=== PATIENT | male | born 1965 | race Caucasian/White ===

== ENCOUNTER 2020-03-13 00:29 | Inpatient (IN) | payer MEDICAID ==
[~2020-03-13] VITALS: Ht 162.6 cm; Wt 64.9 kg
[~2020-03-13 00:29] MED LIST: METH5TAB2 PO
[2020-03-13] MEDS ORDERED: MORPHINE SULFATE 4 MG/ML, 1ML ONE ×2 (00:58→02:48)
[2020-03-13] MEDS ORDERED: ONDANSETRON 2MG/ML, 2ML ONE (00:58)
[2020-03-13] MEDS ORDERED: ONDANSETRON 2MG/ML, 2ML IVPush ONE (01:00)
[2020-03-13] MEDS ORDERED: SODIUM CHLORIDE FLUSH 10ML SYR IVF ONE (01:00)
[2020-03-13] MEDS: MORPHINE SULFATE 4 MG/ML, 1ML IVPush PRN ×2 (01:07→02:52)
[2020-03-13 01:11] LABS: BASOPHILS % (AUTO) 0 % (0-1); EOSINOPHILS % (AUTO) 1 % (1-7); LYMPHOCYTES % (AUTO) 11 % (22-44); MEAN CORPUSCULAR HEMOGLOBIN 31.7 pg (27.5-34.5); MEAN CORPUSCULAR HGB CONC 34.3 g/dL (33.2-36.2); MEAN PLATELET VOLUME 7.8 fL (7.4-10.4); MONOCYTES % (AUTO) 5 % (2-9); NEUTROPHILS % (AUTO) 83 % (42-75); PLATELET COUNT 204 x10^3/uL (130-400); RED BLOOD COUNT 4.96 x10^6/uL (4.38-5.82); RED CELL DISTRIBUTION WIDTH 12.4 % (9.4-14.8)
[2020-03-13 01:22] LABS: ALANINE AMINOTRANSFERASE 31 U/L (12-78); ALBUMIN 3.7 g/dL (3.4-5.0); ANION GAP 6 mmol/L (5-15); CALCIUM 8.7 mg/dL (8.5-10.1); CHLORIDE 101 mmol/L (98-107)
[2020-03-13 01:24] LABS: ALKALINE PHOSPHATASE 65 U/L (45-117); BILIRUBIN,TOTAL 0.6 mg/dL (0.2-1.0); TOTAL PROTEIN 6.8 g/dL (6.4-8.2)
--- NOTE | 2020-03-13 01:30 | NUR ---
PATIENT TOLERATED IV START WELL. PATIENT GIVEN MEDICATIONS PER MAR. PATIENT UPDATED ON PLAN OF CARE. WARM BLANKETS PROVIDED, LIGHTS DIMMED. CALL LIGHT WITHIN REACH, BED IN LOWEST LOCKED POSITION. WILL CONTINUE TO MONITOR.
[2020-03-13] MEDS ORDERED: OMNIPAQUE 350 MG/ML, 100ML BOTTLE ONE (01:49)
--- NOTE | 2020-03-13 01:58 | NUR ---
PATIENT RETURNED FORM CT, TOLERATED WELL. VITAL SIGNS STABLE. NO NOTED ACUTE DISTRESS.
--- NOTE | 2020-03-13 02:00 | NUR ---
REPORT GIVEN TO FRANSICO MALDONADO
[2020-03-13 02:06] LABS: MD NO
[2020-03-13] MEDS ORDERED: SODIUM CHLORIDE 0.9% 1,000ML IVBOLUS ONE (02:30)
[2020-03-13 03:15] VITALS: BP 176/85
[2020-03-13] MEDS ORDERED: ENALAPRILAT 1.25 MG/ML, 2ML IVPush PRN (04:00)
[2020-03-13] MEDS ORDERED: LABETALOL 5MG/ML, 20ML IVPush PRN (04:00)
[2020-03-13] MEDS ORDERED: ONDANSETRON 2MG/ML, 2ML IVPush PRN (04:00)
[2020-03-13] MEDS ORDERED: HYDROmorphone 2 MG/ML, 1ML IVPush PRN (04:00)
[2020-03-13] MEDS ORDERED: blood pressure med PO (04:05)
[2020-03-13 04:06] LABS: TROPONIN I < 0.015 ng/mL (0.000-0.045)
[2020-03-13] MEDS ORDERED: METO-282 PO (04:07)
[2020-03-13 04:22] VITALS: BP 157/94
[2020-03-13] MEDS: ENOXAPARIN 40 MG/0.4 ML SQ SCH (04:30)
[2020-03-13] MEDS: LACTATED RINGERS 1,000 ML IV SCH ×2 (04:30→15:40)
[2020-03-13 05:37] LABS: MICROSCOPIC NOT IND
[2020-03-13] MEDS: morphine SULFATE 10 MG/ML, 1ML IVPush PRN ×2 (06:19→12:15)
[2020-03-13] MEDS: PANTOPRAZOLE 40 MG IV IVPush SCH (06:19)
[2020-03-13 07:23] VITALS: BP 156/82
[2020-03-13 13:54] VITALS: BP 142/71
[2020-03-13 19:19] VITALS: BP 135/80
[2020-03-14 01:22] VITALS: BP 138/78
[2020-03-14] MEDS: morphine SULFATE 10 MG/ML, 1ML IVPush PRN (01:34)
[2020-03-14] MEDS: ENOXAPARIN 40 MG/0.4 ML SQ SCH (04:23)
[2020-03-14] MEDS: PANTOPRAZOLE 40 MG IV IVPush SCH (05:48)
[2020-03-14] MEDS: LACTATED RINGERS 1,000 ML IV SCH ×2 (05:49)
[2020-03-14] MEDS ORDERED: METOPROLOL SUCCINATE 25 MG TAB.ER.24H PO SCH (06:00)
[2020-03-14 07:34] VITALS: BP 159/77
[2020-03-14] MEDS ORDERED: FLU VACC QS2020-21(6MOS UP)/PF 60MCG/0.5 ML SYR IM ONE (10:30)
== END 2020-03-14 11:13 | disposition home or self-care (01) | DRG 390 ==
LOC: ED 01:23 → 4NE 02:27 → DCLOUNGE 03-14 10:57
PROVIDERS: ADMIT Family Medicine; ATTEND Family Medicine
PROC: 0D9670Z Drainage of Stomach with Drainage Device, Via Natural or Artificial Opening (ICD-10-PCS; principal; 2020-03-13)
DX: K56.609 Unspecified intestinal obstruction, unspecified as to partial versus complete obstruction (principal); I10 Essential (primary) hypertension; F41.9 Anxiety disorder, unspecified; R07.9 Chest pain, unspecified
CPT/HCPCS: 36415; 74018; 74177; 80053; 81003; 83605; 83690; 84484; 85025; 90686; 93005; G0378; J1650; J2405; Q9967; C9113; J2270; J7030; J7120

== ENCOUNTER 2020-03-15 12:02 | Inpatient (IN) | payer MEDICAID ==
[~2020-03-15] VITALS: Ht 162.6 cm; Wt 68.2 kg
[~2020-03-15 12:02] MED LIST changes: +METO-282 PO; +blood pressure med PO
[2020-03-15 12:48] LABS: BASOPHILS % (AUTO) 0 % (0-1); EOSINOPHILS % (AUTO) 1 % (1-7); LYMPHOCYTES % (AUTO) 24 % (22-44); MEAN CORPUSCULAR HGB CONC 34.2 g/dL (33.2-36.2); MEAN PLATELET VOLUME 7.9 fL (7.4-10.4); MONOCYTES % (AUTO) 10 % (2-9); NEUTROPHILS % (AUTO) 66 % (42-75); PLATELET COUNT 208 x10^3/uL (130-400); RED BLOOD COUNT 4.52 x10^6/uL (4.38-5.82); RED CELL DISTRIBUTION WIDTH 12.5 % (9.4-14.8)
[2020-03-15 12:58] LABS: ALBUMIN 3.7 g/dL (3.4-5.0); ANION GAP 4 mmol/L (5-15); CALCIUM 8.9 mg/dL (8.5-10.1); CHLORIDE 103 mmol/L (98-107)
[2020-03-15 12:59] LABS: MD NO
[2020-03-15 13:01] LABS: ALANINE AMINOTRANSFERASE 25 U/L (12-78); ALKALINE PHOSPHATASE 60 U/L (45-117); BILIRUBIN,TOTAL 0.8 mg/dL (0.2-1.0); CREATININE 0.97 mg/dL (0.7-1.3)
--- NOTE | 2020-03-15 13:20 | NUR ---
DRAWER IN JACQUARD LOOM: PATIENT AMBULATORY FROM [facility]
[2020-03-15] MEDS ORDERED: SODIUM CHLORIDE FLUSH 10ML SYR IVF ONE (14:00)
[2020-03-15] MEDS ORDERED: ONDANSETRON 2MG/ML, 2ML IVPush ONE (14:00)
[2020-03-15] MEDS ORDERED: HYDROmorphone 2 MG/ML, 1ML IVPush PRN (14:00)
[2020-03-15] MEDS ORDERED: ONDANSETRON 2MG/ML, 2ML ONE (14:02)
[2020-03-15] MEDS ORDERED: HYDROmorphone 1 MG/ML, 1ML INJ ONE (14:02)
[2020-03-15] MEDS: LACTATED RINGERS 1,000 ML IV SCH ×2 (14:20→20:11)
--- NOTE | 2020-03-15 14:51 | NUR ---
PIV INITIATED, PT MEDICATED PER AUG. NG PLACED, PT TO LOW CONTINUOUS SUCTION.
--- NOTE | 2020-03-15 15:08 | NUR ---
PT TO IMAGING AT THIS TIME
[2020-03-15] MEDS ORDERED: ONDANSETRON 2MG/ML, 2ML IVPush PRN (15:30)
[2020-03-15] MEDS ORDERED: ENALAPRILAT 1.25 MG/ML, 2ML IVPush PRN (15:30)
[2020-03-15] MEDS ORDERED: LACTATED RINGERS 1,000 ML IV SCH (15:30)
--- NOTE | 2020-03-15 15:50 | NUR ---
DELIVERED PT BELONGINGS DELIVERED TO PT IN RADIOLOGY, PT VERIFIED RECEIPT OF ALL BELONGINGS. PT TO GO TO 368, REPORT GIVEN TO RECIEVING FRANSICO
[2020-03-15] MEDS: morphine SULFATE 10 MG/ML, 1ML IVPush PRN ×2 (17:53→21:02)
[2020-03-15] MEDS: PANTOPRAZOLE 40 MG IV IVPush SCH (17:54)
[2020-03-15] MEDS: HEPARIN 5,000 UNITS/ML, 1ML SQ SCH ×2 (17:55→22:19)
[2020-03-15 18:12] VITALS: BP 186/106
[2020-03-15 18:24] VITALS: BP 186/106
[2020-03-15 19:15] VITALS: BP 173/96
[2020-03-15 20:04] VITALS: BP 155/86
[2020-03-16] MEDS: morphine SULFATE 10 MG/ML, 1ML IVPush PRN ×2 (00:42→08:08)
[2020-03-16 00:45] VITALS: BP 135/70
[2020-03-16] MEDS: LACTATED RINGERS 1,000 ML IV SCH ×3 (02:58→23:59)
[2020-03-16] MEDS ORDERED: BUPIVACAINE/PF 0.25% ONE (06:07)
[2020-03-16] MEDS ORDERED: CHLORHEXIDINE 15 ML UDC MM STA (06:24)
[2020-03-16] MEDS ORDERED: CHLORHEXIDINE 15 ML UDC ONE (06:26)
[2020-03-16] MEDS ORDERED: FENTANYL PF 250 MCG/5ML ONE (06:51)
[2020-03-16 07:25] VITALS: BP 137/85
[2020-03-16] MEDS: HEPARIN 5,000 UNITS/ML, 1ML SQ SCH ×3 (07:30→23:30)
[2020-03-16] MEDS: METOCLOPRAMIDE 5 MG/ML, 2ML IVPush SCH ×3 (08:07→21:45)
[2020-03-16] MEDS: PANTOPRAZOLE 40 MG IV IVPush SCH (08:07)
[2020-03-16 13:52] VITALS: BP 152/79
[2020-03-16 19:02] VITALS: BP 138/66
[2020-03-17 00:43] VITALS: BP 136/78
[2020-03-17] MEDS: METOCLOPRAMIDE 5 MG/ML, 2ML IVPush SCH ×2 (04:26→08:24)
[2020-03-17] MEDS: LACTATED RINGERS 1,000 ML IV SCH ×2 (06:19→12:40)
[2020-03-17] MEDS: HEPARIN 5,000 UNITS/ML, 1ML SQ SCH (07:30)
[2020-03-17 07:42] VITALS: BP 162/91
[2020-03-17] MEDS: PANTOPRAZOLE 40 MG IV IVPush SCH (08:24)
== END 2020-03-17 14:33 | disposition home or self-care (01) | DRG 390 ==
LOC: ED 12:59 → INTOOBSV 14:01 → EDIP 14:01 → OBSVTOIN 14:01 → 3N 17:18
PROVIDERS: ADMIT Family Medicine; ATTEND Family Medicine
PROC: 0D9670Z Drainage of Stomach with Drainage Device, Via Natural or Artificial Opening (ICD-10-PCS; principal; 2020-03-15)
DX: K56.609 Unspecified intestinal obstruction, unspecified as to partial versus complete obstruction (principal); I10 Essential (primary) hypertension; F41.9 Anxiety disorder, unspecified; Z20.828 Contact with and (suspected) exposure to other viral communicable diseases; Z87.891 Personal history of nicotine dependence; Z81.8 Family history of other mental and behavioral disorders; Z79.899 Other long term (current) drug therapy
CPT/HCPCS: 36415; 74021; 74250; 80053; 83690; 85025; 87635; 96374; 99285; G0378; J1170; J1644; J2405; J3010; J3490; C9113; J2270; J2765; J7120

== ENCOUNTER 2021-01-18 04:56 | Inpatient (IN) | payer MEDICAID ==
[~2021-01-18] VITALS: Ht 162.6 cm; Wt 70.8 kg
[2021-01-18] MEDS ORDERED: SODIUM CHLORIDE FLUSH 10ML SYR IVF ONE (05:30)
[2021-01-18] MEDS ORDERED: SODIUM CHLORIDE 0.9% 1,000ML IVBOLUS ONE (05:30)
[2021-01-18] MEDS ORDERED: ONDANSETRON 2MG/ML, 2ML IVPush ONE (05:30)
[2021-01-18] MEDS ORDERED: MORPHINE SULFATE 4 MG/ML, 1ML ONE ×2 (05:36→07:41)
[2021-01-18] MEDS ORDERED: ONDANSETRON 2MG/ML, 2ML ONE ×2 (05:36→11:01)
[2021-01-18] MEDS: MORPHINE SULFATE 4 MG/ML, 1ML IVPush PRN ×2 (05:38→07:48)
--- NOTE | 2021-01-18 05:38 | NUR ---
PT AMBULATED TO ROOM 16. C/O PAIN TO ABDOMEN. MD TO BEDSIDE TO EVAL PT, AND NEW ORDERS RECEIVED. PIV STARTED TO RIGHT HAND X1 18G CATH. FLUSHED EASILY AND BLOOD DRAWN AND SENT TO LAB. PT MEDICATED PER MD ORDER, SEE EMAR.
[2021-01-18 05:44] LABS: BASOPHILS % (AUTO) 0 % (0-1); EOSINOPHILS % (AUTO) 1 % (1-7); LYMPHOCYTES % (AUTO) 12 % (22-44); MEAN CORPUSCULAR HEMOGLOBIN 33.1 pg (27.5-34.5); MEAN CORPUSCULAR HGB CONC 35.1 g/dL (33.2-36.2); MONOCYTES % (AUTO) 7 % (2-9); NEUTROPHILS % (AUTO) 80 % (42-75); PLATELET COUNT 218 x10^3/uL (130-400); RED BLOOD COUNT 5.22 x10^6/uL (4.38-5.82); RED CELL DISTRIBUTION WIDTH 13.1 % (9.4-14.8)
[2021-01-18 06:18] LABS: ALBUMIN 3.9 g/dL (3.4-5.0); ANION GAP 7 mmol/L (5-15); CALCIUM 9.5 mg/dL (8.5-10.1); CHLORIDE 103 mmol/L (98-107)
[2021-01-18 06:21] LABS: ALANINE AMINOTRANSFERASE 26 U/L (12-78); ALKALINE PHOSPHATASE 65 U/L (45-117); BILIRUBIN,TOTAL 0.8 mg/dL (0.2-1.0); CREATININE 0.82 mg/dL (0.7-1.3); TOTAL PROTEIN 7.5 g/dL (6.4-8.2)
--- NOTE | 2021-01-18 06:26 | NUR ---
PT TAKEN TO CT SCAN.
[2021-01-18] MEDS ORDERED: OMNIPAQUE 350 MG/ML, 100ML BOTTLE ONE (06:35)
--- NOTE | 2021-01-18 06:47 | NUR ---
REPORT AND CARE TO DOREEN BATEMAN.
--- NOTE | 2021-01-18 07:15 | NUR ---
REPORT RECEIVED FROM FRANSICO VICK, PT IS A&O, RESPS EVEN AND UNLABORED, REPORTING 9/10 LEFT UPPER ABD PAIN WHICH HE STATES IS TYPICAL FOR HIS CHRONIC ABDOMINAL PAIN EPISODES. PT UPDATED WITH POC. BP AND SPO2 MONITORS IN PLACE. CALL LIGHT IN REACH.
--- NOTE | 2021-01-18 07:48 | NUR ---
imaging reviewed by edwi law, valium ordered to be administered prior to NG placement. notified pt requesting second dose morphine, md ok'd valium to be given, ok following 30 mins after morphine. RN received order for NG tube to treat bowel obstruction, pt updated with poc. pt agreeable.
[2021-01-18] MEDS ORDERED: metoprolol PO (07:50)
[2021-01-18] MEDS ORDERED: amoxicillin PO (07:50)
[2021-01-18] MEDS ORDERED: DIAZEPAM 5 MG/ML, 2ML IVPush PRN (08:00)
--- NOTE | 2021-01-18 08:46 | NUR ---
hospitalist ashley at bedside, pt reports pain has subsided, per hospitalist ashley RN to hold NG tube. if pt has increased abd pain later, she will reassess need for order. pt is a&o, resps even and unlabored, bp and spo2 monitors in place. call light in reach. awaiting medical bed assignment and transport.
[2021-01-18] MEDS ORDERED: ONDANSETRON ODT 4 MG PO PRN (09:00)
[2021-01-18] MEDS ORDERED: BISACODYL 10 MG SUPP PR PRN (09:00)
--- NOTE | 2021-01-18 10:00 | NUR ---
medical pts holding in ED, hospital bed requested.
--- NOTE | 2021-01-18 10:01 | NUR ---
order for ancef clarified, this is to replace PO amoxicillin pt has been taking for current strep infection. per shasta ramirez, pt does not require blood cultures or sepsis workup.
[2021-01-18] MEDS ORDERED: CEFAZOLIN PMX 1GM/50ML 50 ML ONE (10:04)
[2021-01-18] MEDS: CEFAZOLIN PMX 1GM/50ML 50 ML IV SCH ×2 (10:09→17:28)
[2021-01-18] MEDS ORDERED: morphine SULFATE 10 MG/ML, 1ML ONE (11:01)
[2021-01-18] MEDS: morphine SULFATE 10 MG/ML, 1ML IVPush PRN (11:06)
[2021-01-18] MEDS: ONDANSETRON 2MG/ML, 2ML IVPush PRN ×2 (11:07→16:14)
--- NOTE | 2021-01-18 11:20 | NUR ---
PT MEDICATED PER EMAR FOR 9/10 ABD PAIN, DECLINES NG TUBE AT THIS TIME IN DEFEREANCE TO MEDICATION. PT TOLERATED WELL. BP AND SPO2 MONITORS IN PLACE. CALL LIGHT IN REACH. PT A&O, RESPS EVEN AND UNLABORED, AWAITING MEDICAL ROOM ASSIGNMENT AND TRANSPORT. PT MOVED ONTO HOSPITAL BED FOR COMFORT. PT KEPT NPO PER HOSPITALIST ORDERS.
--- NOTE | 2021-01-18 11:30 | NUR ---
PT REPORTS PAIN RESOLVED, DENIES ANY ADDITIONAL NEEDS AT THIS TIME.
--- NOTE | 2021-01-18 12:26 | NUR ---
PT SLEEPING, RESPS EVEN AND UNLABORED. BP AND SPO2 MONITORS IN PLACE. CALL LIGHT IN REACH. AWAITING MEDICAL BED ASSIGNMENT AND TRANSPORT.
--- NOTE | 2021-01-18 13:38 | NUR ---
PT REMAINS ASLEEP, RESPS EVEN AND UNLABORED, BP AND SPO2 MONITORS IN PLACE. CALL LIGHT IN REACH. AWAITING MEDICAL BED AND DISPO.
--- NOTE | 2021-01-18 15:15 | NUR ---
PT REPORTING "I FEEL DEHYDRATED" , REPORTING HEADACHE WHICH HE GETS ON A CHRONIC BASIS. GABRIELA SAEED NOTIFIED, MAINTENANCE FLUIDS ORDERED. PT REPORTS ABD PAIN LEVEL IS 5/10, TOLERABLE PER PATIENT, DENIES NAUSEA AT THIS TIME. DECLINES NG TUBE AT THIS TIME.
[2021-01-18] MEDS: SODIUM CHLORIDE 0.9% 1,000 ML IV SCH (15:20)
--- NOTE | 2021-01-18 15:29 | NUR ---
REPORT ATTEMPTED X 2 TO FLOOR RN FOR REPORT, UNABLE TO REACH. REPORT GIVEN TO SMOKE JUMPER PANCHO. PT AWAITING TRANSPORT TO MEDICAL FLOOR AT THIS TIME.
--- NOTE | 2021-01-18 15:46 | NUR ---
pt transported to floor, nadn at transport.
[2021-01-18 15:59] VITALS: BP 182/95
[2021-01-18] MEDS: KETOROLAC 30 MG/1 ML IV PRN (17:28)
[2021-01-18 19:22] VITALS: BP 148/72
[2021-01-18 21:21] LABS: MICROSCOPIC NOT IND
[2021-01-19 01:01] VITALS: BP 153/81
[2021-01-19] MEDS: SODIUM CHLORIDE 0.9% 1,000 ML IV SCH ×3 (01:16→20:03)
[2021-01-19] MEDS: CEFAZOLIN PMX 1GM/50ML 50 ML IV SCH ×3 (01:16→16:00)
[2021-01-19] MEDS: morphine SULFATE 10 MG/ML, 1ML IVPush PRN ×3 (04:08→20:04)
[2021-01-19 05:33] LABS: BASOPHILS % (AUTO) 0 % (0-1); EOSINOPHILS % (AUTO) 1 % (1-7); LYMPHOCYTES % (AUTO) 14 % (22-44); MEAN CORPUSCULAR HEMOGLOBIN 32.6 pg (27.5-34.5); MEAN CORPUSCULAR HGB CONC 34.5 g/dL (33.2-36.2); MEAN PLATELET VOLUME 8.2 fL (7.4-10.4); MONOCYTES % (AUTO) 8 % (2-9); NEUTROPHILS % (AUTO) 77 % (42-75); PLATELET COUNT 194 x10^3/uL (130-400); RED BLOOD COUNT 4.76 x10^6/uL (4.38-5.82)
[2021-01-19 05:41] LABS: ANION GAP 6 mmol/L (5-15); CALCIUM 8.7 mg/dL (8.5-10.1); CHLORIDE 104 mmol/L (98-107)
[2021-01-19 05:44] LABS: CREATININE 0.84 mg/dL (0.7-1.3)
[2021-01-19 07:05] VITALS: BP 162/98
[2021-01-19] MEDS: ONDANSETRON 2MG/ML, 2ML IVPush PRN ×3 (07:24→22:06)
[2021-01-19] MEDS: KETOROLAC 30 MG/1 ML IV PRN ×3 (07:25→22:53)
[2021-01-19 20:00] VITALS: BP 173/84
[2021-01-19 20:59] VITALS: BP 168/93
[2021-01-20 01:00] VITALS: BP 156/89
[2021-01-20] MEDS: CEFAZOLIN PMX 1GM/50ML 50 ML IV SCH ×3 (01:14→16:18)
[2021-01-20] MEDS: SODIUM CHLORIDE 0.9% 1,000 ML IV SCH ×3 (04:30→20:14)
[2021-01-20] MEDS: morphine SULFATE 10 MG/ML, 1ML IVPush PRN ×4 (04:48→20:14)
[2021-01-20 05:06] LABS: BASOPHILS % (AUTO) 0 % (0-1); EOSINOPHILS % (AUTO) 1 % (1-7); LYMPHOCYTES % (AUTO) 16 % (22-44); MEAN CORPUSCULAR HEMOGLOBIN 32.3 pg (27.5-34.5); MEAN CORPUSCULAR HGB CONC 34.3 g/dL (33.2-36.2); MONOCYTES % (AUTO) 12 % (2-9); NEUTROPHILS % (AUTO) 71 % (42-75); PLATELET COUNT 175 x10^3/uL (130-400); RED BLOOD COUNT 4.75 x10^6/uL (4.38-5.82); RED CELL DISTRIBUTION WIDTH 12.6 % (9.4-14.8)
[2021-01-20 05:16] LABS: ANION GAP 0 mmol/L (5-15); CALCIUM 8.2 mg/dL (8.5-10.1); CHLORIDE 109 mmol/L (98-107); CREATININE 0.82 mg/dL (0.7-1.3)
[2021-01-20] MEDS: KETOROLAC 30 MG/1 ML IV PRN ×3 (07:36→21:18)
[2021-01-20] MEDS: METOPROLOL SUCCINATE 25 MG TAB.ER.24H PO SCH ×2 (09:00→09:32)
[2021-01-20 09:23] VITALS: BP 161/83
[2021-01-20 13:38] VITALS: BP 156/88
[2021-01-20] MEDS: ENOXAPARIN 40 MG/0.4 ML SQ SCH (13:53)
[2021-01-20] MEDS: ONDANSETRON 2MG/ML, 2ML IVPush PRN ×2 (13:54→20:14)
[2021-01-20 20:20] VITALS: BP 165/85
[2021-01-21 00:31] VITALS: BP 134/71
[2021-01-21] MEDS: CEFAZOLIN PMX 1GM/50ML 50 ML IV SCH ×3 (01:19→17:41)
[2021-01-21] MEDS: morphine SULFATE 10 MG/ML, 1ML IVPush PRN ×2 (01:24→05:28)
[2021-01-21] MEDS: KETOROLAC 30 MG/1 ML IV PRN ×3 (02:51→17:59)
[2021-01-21] MEDS: SODIUM CHLORIDE 0.9% 1,000 ML IV SCH ×3 (05:20→19:49)
[2021-01-21 06:33] LABS: ANION GAP 7 mmol/L (5-15); CALCIUM 8.1 mg/dL (8.5-10.1); CHLORIDE 105 mmol/L (98-107); CREATININE 0.75 mg/dL (0.7-1.3)
[2021-01-21 07:19] VITALS: BP 146/71
[2021-01-21] MEDS: METOPROLOL SUCCINATE 25 MG TAB.ER.24H PO SCH (09:19)
[2021-01-21] MEDS: ENOXAPARIN 40 MG/0.4 ML SQ SCH (13:17)
[2021-01-21 14:20] VITALS: BP 144/82
[2021-01-21 19:58] VITALS: BP 154/81
[2021-01-22] MEDS: CEFAZOLIN PMX 1GM/50ML 50 ML IV SCH ×3 (00:34→17:21)
[2021-01-22] MEDS: KETOROLAC 30 MG/1 ML IV PRN ×4 (00:36→20:04)
[2021-01-22 00:47] VITALS: BP 160/85
[2021-01-22] MEDS: SODIUM CHLORIDE 0.9% 1,000 ML IV SCH ×2 (04:09→13:41)
[2021-01-22 07:39] VITALS: BP 167/96
[2021-01-22] MEDS: METOPROLOL SUCCINATE 25 MG TAB.ER.24H PO SCH (08:18)
[2021-01-22 13:34] VITALS: BP 173/96
[2021-01-22 13:39] VITALS: BP 165/85
[2021-01-22] MEDS: ENOXAPARIN 40 MG/0.4 ML SQ SCH (13:40)
[2021-01-22] MEDS: ONDANSETRON 2MG/ML, 2ML IVPush PRN ×2 (14:47→20:04)
[2021-01-22] MEDS: morphine SULFATE 10 MG/ML, 1ML IVPush PRN ×2 (17:31→21:39)
[2021-01-22 21:05] VITALS: BP 167/88
[2021-01-23] MEDS: CEFAZOLIN PMX 1GM/50ML 50 ML IV SCH ×3 (00:24→16:49)
[2021-01-23] MEDS: ONDANSETRON 2MG/ML, 2ML IVPush PRN ×4 (01:05→21:56)
[2021-01-23] MEDS: KETOROLAC 30 MG/1 ML IV PRN (01:05)
[2021-01-23 01:11] VITALS: BP 162/83
[2021-01-23] MEDS: morphine SULFATE 10 MG/ML, 1ML IVPush PRN ×6 (01:40→21:56)
[2021-01-23 07:09] VITALS: BP 144/78
[2021-01-23] MEDS: METOPROLOL SUCCINATE 25 MG TAB.ER.24H PO SCH (09:14)
[2021-01-23 12:19] VITALS: BP 130/76
[2021-01-23] MEDS: ENOXAPARIN 40 MG/0.4 ML SQ SCH (14:04)
[2021-01-23 19:30] VITALS: BP 163/89
[2021-01-24 01:16] VITALS: BP 142/70
[2021-01-24] MEDS: CEFAZOLIN PMX 1GM/50ML 50 ML IV SCH ×3 (01:17→18:44)
[2021-01-24] MEDS: morphine SULFATE 10 MG/ML, 1ML IVPush PRN ×2 (03:17→08:30)
[2021-01-24] MEDS: ONDANSETRON 2MG/ML, 2ML IVPush PRN (03:17)
[2021-01-24 07:22] VITALS: BP 148/80
[2021-01-24] MEDS: ENOXAPARIN 40 MG/0.4 ML SQ SCH ×2 (07:26→16:59)
[2021-01-24] MEDS: METOPROLOL SUCCINATE 25 MG TAB.ER.24H PO SCH (08:17)
[2021-01-24] MEDS ORDERED: FENTANYL PF 100 MCG/2ML ONE ×2 (10:59→12:20)
[2021-01-24] MEDS ORDERED: MIDAZOLAM 1 MG/ML, 2ML ONE (10:59)
[2021-01-24] MEDS ORDERED: CHLORHEXIDINE 15 ML UDC ONE (11:40)
[2021-01-24] MEDS ORDERED: ROCURONIUM 10MG/ML,5ML ONE (12:20)
[2021-01-24] MEDS ORDERED: PROPOFOL 10 MG/ML, 20ML ONE (12:20)
[2021-01-24] MEDS ORDERED: NEOSTIGMINE 1 MG/ML, 10ML ONE (12:20)
[2021-01-24] MEDS ORDERED: GLYCOPYRROLATE 0.2MG/1ML, 5ML ONE (12:20)
[2021-01-24] MEDS ORDERED: CEFAZOLIN 1,000 MG ONE (12:20)
[2021-01-24] MEDS ORDERED: SUCCINYLCHOLINE 20 MG/ML, 10ML ONE (12:20)
[2021-01-24] MEDS ORDERED: DEXAMETHASONE 4 MG/ML, 1ML ONE (12:20)
[2021-01-24] MEDS ORDERED: ONDANSETRON 2MG/ML, 2ML ONE (12:20)
[2021-01-24] MEDS ORDERED: KETOROLAC 30 MG/1 ML IVPush PRN (12:30)
[2021-01-24] MEDS ORDERED: HYDROcodone/APAP 7.5-325MG/15ML UDC PO PRN (12:30)
[2021-01-24] MEDS ORDERED: OXYcodone 5 MG/5 ML ORAL.SOL UDC PO PRN (12:30)
[2021-01-24] MEDS ORDERED: FENTANYL PF 100 MCG/2ML IV PRN (12:30)
[2021-01-24] MEDS ORDERED: MEPERIDINE/PF 25MG/0.5ML IVPush PRN (12:30)
[2021-01-24] MEDS ORDERED: PROMETHAZINE 25 MG/ML, 1ML IVPush PRN (12:30)
[2021-01-24] MEDS ORDERED: ONDANSETRON 2MG/ML, 2ML IVPush PRN (12:30)
[2021-01-24] MEDS ORDERED: GLYCOPYRROLATE 0.4 MG/2 ML, 2ML ONE (13:21)
[2021-01-24] MEDS ORDERED: HYDROmorphone 2 MG/ML, 1ML ONE (13:51)
[2021-01-24] MEDS: HYDROmorphone 1 MG/ML, 1ML INJ IVPush PRN ×4 (13:53→14:16)
[2021-01-24] MEDS ORDERED: PROMETHAZINE 25 MG/ML, 1ML ONE (13:55)
[2021-01-24] MEDS ORDERED: GLYCOPYRROLATE 0.2MG/1ML, 5ML IVPush ONE (14:00)
[2021-01-24] MEDS ORDERED: CEFOTETAN PMX 1GM/50ML 50 ML IVPB SCH (15:00)
[2021-01-24] MEDS ORDERED: morphine SULFATE 10 MG/ML, 1ML IV PRN (15:00)
[2021-01-24] MEDS ORDERED: HYDROmorphone 2 MG/ML, 1ML IVPush PRN (15:00)
[2021-01-24] MEDS ORDERED: ENALAPRILAT 1.25 MG/ML, 1ML ONE (15:32)
[2021-01-24] MEDS: ENALAPRILAT 1.25 MG/ML, 2ML IVPush PRN (15:35)
[2021-01-24] MEDS: ONDANSETRON 2MG/ML, 2ML IV PRN (16:58)
[2021-01-24] MEDS: POTASSIUM CHLORIDE 20 MEQ in D5%-0.45% NACL 1,000 ML IV SCH (16:59)
[2021-01-24 19:43] VITALS: BP 168/108
[2021-01-24] MEDS: LABETALOL 5MG/ML, 20ML IVPush PRN (19:46)
[2021-01-24] MEDS: CEFOTETAN PMX 1GM/50ML 50 ML IVPB SCH (21:00)
[2021-01-24] MEDS: HYDROmorphone 2 MG/ML, 1ML IVPush PRN ×2 (21:23→23:29)
[2021-01-25] VITALS (7 sets, daily range): BP systolic 130–187; BP diastolic 83–115
[2021-01-25] MEDS: CEFAZOLIN PMX 1GM/50ML 50 ML IV SCH ×3 (00:51→18:20)
[2021-01-25] MEDS: HYDROmorphone 2 MG/ML, 1ML IVPush PRN ×9 (01:30→22:28)
[2021-01-25] MEDS: ONDANSETRON 2MG/ML, 2ML IVPush PRN (01:36)
[2021-01-25] MEDS: POTASSIUM CHLORIDE 20 MEQ in D5%-0.45% NACL 1,000 ML IV SCH ×3 (03:15→23:27)
[2021-01-25] MEDS: LABETALOL 5MG/ML, 20ML IVPush PRN ×2 (05:54→13:00)
[2021-01-25 06:21] LABS: BASOPHILS % (AUTO) 0 % (0-1); EOSINOPHILS % (AUTO) 0 % (1-7); LYMPHOCYTES % (AUTO) 4 % (22-44); MEAN CORPUSCULAR HEMOGLOBIN 32.5 pg (27.5-34.5); MEAN CORPUSCULAR HGB CONC 34.6 g/dL (33.2-36.2); MEAN PLATELET VOLUME 7.8 fL (7.4-10.4); MONOCYTES % (AUTO) 8 % (2-9); NEUTROPHILS % (AUTO) 88 % (42-75); PLATELET COUNT 260 x10^3/uL (130-400); RED BLOOD COUNT 4.47 x10^6/uL (4.38-5.82); RED CELL DISTRIBUTION WIDTH 12.5 % (9.4-14.8)
[2021-01-25] MEDS: ONDANSETRON 2MG/ML, 2ML IV PRN ×3 (08:26→23:27)
[2021-01-25] MEDS: METOPROLOL SUCCINATE 25 MG TAB.ER.24H PO SCH (08:27)
[2021-01-25] MEDS: CEFOTETAN PMX 1GM/50ML 50 ML IVPB SCH (09:16)
[2021-01-25] MEDS: ENOXAPARIN 40 MG/0.4 ML SQ SCH ×2 (09:28→13:01)
[2021-01-26] MEDS: CEFAZOLIN PMX 1GM/50ML 50 ML IV SCH ×3 (00:32→17:29)
[2021-01-26] MEDS: HYDROmorphone 2 MG/ML, 1ML IVPush PRN ×9 (00:32→22:07)
[2021-01-26 01:38] VITALS: BP 149/89
[2021-01-26 06:08] LABS: BASOPHILS % (AUTO) 0 % (0-1); EOSINOPHILS % (AUTO) 0 % (1-7); LYMPHOCYTES % (AUTO) 7 % (22-44); MEAN CORPUSCULAR HEMOGLOBIN 33.5 pg (27.5-34.5); MEAN PLATELET VOLUME 8.2 fL (7.4-10.4); MONOCYTES % (AUTO) 9 % (2-9); NEUTROPHILS % (AUTO) 83 % (42-75); PLATELET COUNT 226 x10^3/uL (130-400); RED BLOOD COUNT 3.61 x10^6/uL (4.38-5.82); RED CELL DISTRIBUTION WIDTH 12.2 % (9.4-14.8)
[2021-01-26] MEDS: METOPROLOL SUCCINATE 25 MG TAB.ER.24H PO SCH (08:48)
[2021-01-26 08:58] VITALS: BP 136/80
[2021-01-26 09:20] LABS: ANION GAP 5 mmol/L (5-15); CALCIUM 8.4 mg/dL (8.5-10.1); CHLORIDE 99 mmol/L (98-107); CREATININE 0.98 mg/dL (0.7-1.3)
[2021-01-26] MEDS: PROCHLORPERAZINE 10MG TABLET PO PRN (10:38)
[2021-01-26] MEDS: D5%-0.45NACL+KCL 20MEQ 1,000 ML IV SCH (10:39)
[2021-01-26 12:28] VITALS: BP 148/92
[2021-01-26 15:29] VITALS: BP 143/90
[2021-01-26] MEDS: ENOXAPARIN 40 MG/0.4 ML SQ SCH (17:28)
[2021-01-26 17:35] VITALS: BP 154/80
[2021-01-26] MEDS ORDERED: ACETAMINOPHEN 325 MG TABLET PO PRN ×2 (18:00)
[2021-01-26 20:27] VITALS: BP 120/77
[2021-01-26] MEDS: ONDANSETRON 2MG/ML, 2ML IV PRN (22:06)
[2021-01-27] MEDS: HYDROmorphone 2 MG/ML, 1ML IVPush PRN ×11 (00:09→23:42)
[2021-01-27] MEDS: CEFAZOLIN PMX 1GM/50ML 50 ML IV SCH ×3 (01:22→16:58)
[2021-01-27 01:42] VITALS: BP 99/79
[2021-01-27] MEDS ORDERED: HALOPERIDOL 5 MG TABLET PO ONE (02:30)
[2021-01-27] MEDS: D5%-0.45NACL+KCL 20MEQ 1,000 ML IV SCH ×2 (05:59→23:36)
[2021-01-27 06:02] LABS: BASOPHILS % (AUTO) 0 % (0-1); EOSINOPHILS % (AUTO) 1 % (1-7); LYMPHOCYTES % (AUTO) 7 % (22-44); MEAN CORPUSCULAR HEMOGLOBIN 32.8 pg (27.5-34.5); MEAN CORPUSCULAR HGB CONC 34.9 g/dL (33.2-36.2); MEAN PLATELET VOLUME 7.7 fL (7.4-10.4); MONOCYTES % (AUTO) 8 % (2-9); NEUTROPHILS % (AUTO) 84 % (42-75); PLATELET COUNT 239 x10^3/uL (130-400); RED BLOOD COUNT 3.34 x10^6/uL (4.38-5.82); RED CELL DISTRIBUTION WIDTH 12.3 % (9.4-14.8)
[2021-01-27 07:47] VITALS: BP 137/77
[2021-01-27] MEDS: METOPROLOL SUCCINATE 25 MG TAB.ER.24H PO SCH (08:38)
[2021-01-27 13:08] VITALS: BP 113/72
[2021-01-27] MEDS: ENOXAPARIN 40 MG/0.4 ML SQ SCH (16:58)
[2021-01-27 21:03] VITALS: BP 166/79
[2021-01-27] MEDS: PROCHLORPERAZINE 10MG TABLET PO PRN (22:04)
[2021-01-28] MEDS: CEFAZOLIN PMX 1GM/50ML 50 ML IV SCH ×3 (01:12→17:42)
[2021-01-28] MEDS: HYDROmorphone 2 MG/ML, 1ML IVPush PRN ×7 (03:24→21:02)
[2021-01-28 05:22] LABS: BASOPHILS % (AUTO) 0 % (0-1); EOSINOPHILS % (AUTO) 1 % (1-7); LYMPHOCYTES % (AUTO) 7 % (22-44); MEAN CORPUSCULAR HEMOGLOBIN 32.6 pg (27.5-34.5); MEAN CORPUSCULAR HGB CONC 35.4 g/dL (33.2-36.2); MEAN PLATELET VOLUME 7.7 fL (7.4-10.4); MONOCYTES % (AUTO) 10 % (2-9); NEUTROPHILS % (AUTO) 83 % (42-75); PLATELET COUNT 277 x10^3/uL (130-400); RED BLOOD COUNT 3.38 x10^6/uL (4.38-5.82); RED CELL DISTRIBUTION WIDTH 12.1 % (9.4-14.8)
[2021-01-28 05:31] LABS: ANION GAP 7 mmol/L (5-15); CALCIUM 8.1 mg/dL (8.5-10.1); CHLORIDE 97 mmol/L (98-107); CREATININE 0.69 mg/dL (0.7-1.3)
[2021-01-28 07:50] VITALS: BP 145/82
[2021-01-28] MEDS: METOPROLOL SUCCINATE 25 MG TAB.ER.24H PO SCH (09:04)
[2021-01-28] MEDS: D5%-0.45NACL+KCL 20MEQ 1,000 ML IV SCH (12:26)
[2021-01-28 14:20] VITALS: BP 165/102
[2021-01-28] MEDS: ENALAPRILAT 1.25 MG/ML, 2ML IVPush PRN (15:14)
[2021-01-28] MEDS: ONDANSETRON 2MG/ML, 2ML IV PRN ×2 (15:20→21:02)
[2021-01-28 15:30] VITALS: BP 145/86
[2021-01-28] MEDS: ENOXAPARIN 40 MG/0.4 ML SQ SCH (17:42)
[2021-01-28 18:59] VITALS: BP 152/90
[2021-01-28] MEDS: PROCHLORPERAZINE 10MG TABLET PO PRN (19:16)
[2021-01-29] MEDS: HYDROmorphone 2 MG/ML, 1ML IVPush PRN ×3 (00:38→06:05)
[2021-01-29] MEDS: CEFAZOLIN PMX 1GM/50ML 50 ML IV SCH ×3 (00:38→17:00)
[2021-01-29 01:01] VITALS: BP 153/82
[2021-01-29 05:42] LABS: BASOPHILS % (AUTO) 0 % (0-1); EOSINOPHILS % (AUTO) 1 % (1-7); LYMPHOCYTES % (AUTO) 6 % (22-44); MEAN CORPUSCULAR HEMOGLOBIN 31.9 pg (27.5-34.5); MEAN CORPUSCULAR HGB CONC 34.5 g/dL (33.2-36.2); MEAN PLATELET VOLUME 7.5 fL (7.4-10.4); MONOCYTES % (AUTO) 9 % (2-9); NEUTROPHILS % (AUTO) 83 % (42-75); PLATELET COUNT 318 x10^3/uL (130-400); RED BLOOD COUNT 3.55 x10^6/uL (4.38-5.82); RED CELL DISTRIBUTION WIDTH 12.4 % (9.4-14.8)
[2021-01-29 05:50] LABS: ANION GAP 8 mmol/L (5-15); CALCIUM 8.7 mg/dL (8.5-10.1); CHLORIDE 97 mmol/L (98-107); CREATININE 0.61 mg/dL (0.7-1.3)
[2021-01-29 08:00] VITALS: BP 169/96
[2021-01-29] MEDS: OXYcodone/APAP 5/325MG TABLET PO PRN ×2 (08:28→15:05)
[2021-01-29] MEDS: METOPROLOL SUCCINATE 25 MG TAB.ER.24H PO SCH (08:29)
[2021-01-29] MEDS ORDERED: PROC10TA78 PO (13:24)
[2021-01-29] MEDS ORDERED: OXYC1TAB14 PO (13:24)
[2021-01-29] MEDS ORDERED: ONDA4TAB13 PO (13:24)
[2021-01-29 15:01] VITALS: BP 158/79
[2021-01-29] MEDS: ENOXAPARIN 40 MG/0.4 ML SQ SCH (17:00)
== END 2021-01-29 18:11 | disposition home or self-care (01) | DRG 330 ==
LOC: ED 09:17 → EDIP 09:20 → 3N 15:55 → 4NE 01-24 14:32
PROVIDERS: ADMIT Hospitalist; ATTEND Family Medicine
PROC: 0D9770Z Drainage of Stomach, Pylorus with Drainage Device, Via Natural or Artificial Opening (ICD-10-PCS; 2021-01-19)
PROC: 0DN80ZZ Release Small Intestine, Open Approach (ICD-10-PCS; 2021-01-24)
PROC: 0DT80ZZ Resection of Small Intestine, Open Approach (ICD-10-PCS; principal; 2021-01-24 16:30)
DX: K56.51 Intestinal adhesions [bands], with partial obstruction (principal); E87.1 Hypo-osmolality and hyponatremia; I10 Essential (primary) hypertension; J02.0 Streptococcal pharyngitis; K56.7 Ileus, unspecified; Z80.9 Family history of malignant neoplasm, unspecified; Z20.822 Contact with and (suspected) exposure to COVID-19
CPT/HCPCS: 36415; 74018; 74021; 74250; 96361; 96374; 96375; 96376; 99285; Q0164; 74177; 80048; 80053; 81003; 82565; 83690; 83735; 85025; 87635; 88307; G0378; J0690; J1100; J1170; J1650; J1885; J2250; J2405; J2550; J2704; J2710; J3010; J3480; Q0162; Q9967; C1765; J0330; J2270; J7030

== ENCOUNTER 2021-01-31 01:35 | Emergency (ER) | payer MEDICAID ==
[~2021-01-31] VITALS: Ht 162.6 cm; Wt 65.0 kg
[~2021-01-31 01:35] MED LIST changes: +ONDA4TAB13 PO; +OXYC1TAB14 PO; +PROC10TA78 PO; +amoxicillin PO; +metoprolol PO
[2021-01-31 01:36] VITALS: BP 137/92
[2021-01-31] MEDS ORDERED: ONDANSETRON 2MG/ML, 2ML ONE (01:53)
[2021-01-31] MEDS ORDERED: MORPHINE SULFATE 4 MG/ML, 1ML ONE (01:53)
[2021-01-31] MEDS ORDERED: MORPHINE SULFATE 4 MG/ML, 1ML IVPush PRN (02:00)
[2021-01-31] MEDS ORDERED: ONDANSETRON 2MG/ML, 2ML IVPush ONE (02:00)
[2021-01-31 02:08] LABS: BASOPHILS % (AUTO) 1 % (0-1); EOSINOPHILS % (AUTO) 2 % (1-7); LYMPHOCYTES % (AUTO) 7 % (22-44); MEAN CORPUSCULAR HEMOGLOBIN 32.5 pg (27.5-34.5); MEAN CORPUSCULAR HGB CONC 35.2 g/dL (33.2-36.2); MEAN PLATELET VOLUME 7.7 fL (7.4-10.4); MONOCYTES % (AUTO) 7 % (2-9); NEUTROPHILS % (AUTO) 83 % (42-75); PLATELET COUNT 414 x10^3/uL (130-400); RED BLOOD COUNT 3.28 x10^6/uL (4.38-5.82); RED CELL DISTRIBUTION WIDTH 12.5 % (9.4-14.8)
[2021-01-31 02:15] LABS: ALANINE AMINOTRANSFERASE 70 U/L (12-78); ANION GAP 6 mmol/L (5-15); CALCIUM 8.1 mg/dL (8.5-10.1); CHLORIDE 99 mmol/L (98-107); CREATININE 0.71 mg/dL (0.7-1.3)
[2021-01-31 02:18] LABS: ALKALINE PHOSPHATASE 289 U/L (45-117); TOTAL PROTEIN 6.1 g/dL (6.4-8.2)
--- NOTE | 2021-01-31 03:28 | NUR ---
New dressing applied to pts abdomen at surgical site. Tolerated well. Provided with extra gauze and tape. Education provided on dressing change. Discharge education provided with patient. All questions answered. Provided pt with taxi voucher home.
--- NOTE | 2021-01-31 04:57 | NUR ---
Patient/Caregiver given discharge instructions and they have confirmed that they understand the instructions. Patient ambulatory with steady gait. NAD, all questions answered appropriately, denies additional needs at this time. No personal belongings left in room after discharge.
== END 2021-01-31 04:59 | disposition home or self-care (01) ==
LOC: ED 02:16
DX: R10.84 Generalized abdominal pain (principal); Z48.01 Encounter for change or removal of surgical wound dressing; I10 Essential (primary) hypertension
CPT/HCPCS: 36415; 80053; 83605; 83690; 85025; 96374; 96375; 99284; J2270; J2405